=== PATIENT | male | born 1950 | race Two or more races ===

== ENCOUNTER 2024-04-11 14:20 | Emergency (ER) | payer OTHER ==
[~2024-04-11] VITALS: Ht 182.9 cm; Wt 118.8 kg
[2024-04-11] MEDS ORDERED: METFORMIN HCL500 MG (15:06)
[2024-04-11] MEDS ORDERED: SIMVASTATIN5 MG (15:06)
[2024-04-11] MEDS ORDERED: AVAPRO150 MG (15:06)
[2024-04-11] MEDS ORDERED: ACETAMINOPHEN 500 MG GEL..CAP PO ONE ×2 (16:29→16:30)
[2024-04-11] MEDS ORDERED: CEFTRIAXONE SODIUM 2,000 MG VIAL ONE (16:29)
[2024-04-11] MEDS ORDERED: CEFTRIAXONE SODIUM 2,000 MG VIAL IV ONE (16:30)
[2024-04-11 17:13] LABS: HEMATOCRIT 40.5 % (39.0-48.0); HEMOGLOBIN 13.7 g/dL (13-16.00); MEAN CELL VOLUME 86.6 fL (80.0-100.00); MEAN CORPUSCULAR HEMOGLOBIN 29.3 pg (27.00-32.0); MEAN CORPUSCULAR HGB CONC 33.9 g/dl (32.0-36.0); PLATELET COUNT 191 K/uL (150-450); RED BLOOD COUNT 4.67 M/uL (4.00-6.00); RED CELL DISTRIBUTION WIDTH 14.1 % (11.5-14.5)
[2024-04-11 17:18] LABS: ERYTHROCYTE SEDIMENTATION RATE 17 mm/hr
[2024-04-11 17:46] LABS: PH,URINE 6.5 (5.0-8.0); URINE APPEARANCE Clear; URINE BILIRRUBIN Negative (NEGATIVE); URINE BLOOD Negative; URINE COLOR Yellow; URINE GLUCOSE Negative (NEGATIVE); URINE KETONE Negative (NEGATIVE); URINE LEUKOCYTE Negative; URINE NITRATE Negative; URINE PROTEIN Negative (NEGATIVE)
[2024-04-11 17:47] LABS: ALBUMIN 4.1 gm/dL (3.4-5.0); BILIRUBIN TOTAL 1.31 mg/dL (0.3-1.2); CREATININE SERUM 1.04 mg/dL (0.70-1.30); GFR 70.2; POTASSIUM 4.47 mEq/L (3.5-5.1); TOTAL PROTEIN 7.1 gm/dL (6.4-8.2)
[2024-04-11 17:50] LABS: URINE RBC 2.7 uL (0.0-20.8)
[2024-04-11 17:57] LABS: URINE BACTERIA 3.6 uL (0.0-1933); URINE EPITHELIAL CELLS 0.9 uL (0.0-38.8); URINE WBC 1.2 uL (0.0-23.2)
[2024-04-11] MEDS ORDERED: PEPCID AC20 MG PO (18:51)
[2024-04-11] MEDS ORDERED: DOXYCYCLINE HY100 MG PO (18:51)
[2024-04-11] MEDS ORDERED: DUI500 PO (18:51)
[2024-04-11] MEDS ORDERED: INTESTINEX680 M1 PO (18:51)
[2024-04-11] MEDS ORDERED: MEDROLPACK PO (18:54)
[2024-04-11] MEDS ORDERED: KETOROLAC TROMETHAMINE 30 MG VIAL IV ONE (19:00)
[2024-04-11] MEDS ORDERED: KETOROLAC TROMETHAMINE 60 MG VIAL IM ONE ×2 (19:10→19:12)
== END 2024-04-11 19:18 ==
LOC: ER 14:23
PROVIDERS: General Practice
DX: R53.81 Other malaise (principal); M25.562 Pain in left knee; M25.462 Effusion, left knee; Z20.822 Contact with and (suspected) exposure to COVID-19; I10 Essential (primary) hypertension; E11.9 Type 2 diabetes mellitus without complications; Z79.84 Long term (current) use of oral hypoglycemic drugs
CPT/HCPCS: 36415; 73560; 96365; 99283; J0696; J1885